=== PATIENT | male | born 1985 | race Caucasian/White ===

== ENCOUNTER 2022-01-03 00:11 | Emergency (ER) | payer SELFPAY ==
[2022-01-03] MEDS ORDERED: Ketorolac 60 MG/2 ML SDV IM ONE (00:28)
[2022-01-03] MEDS ORDERED: Clindamycin HCl 150 MG Cap PO ONE (00:57)
[2022-01-03] MEDS ORDERED: Acetaminophen/HYDROcodone 325-5 MG Tab PO ONE (01:07)
== END 2022-01-03 01:28 | disposition home or self-care (01) ==
LOC: SUPCPDRO 00:11 → KA.ED 00:11
DX: K04.7 Periapical abscess without sinus (principal); K02.9 Dental caries, unspecified; Z87.891 Personal history of nicotine dependence
CPT/HCPCS: 96372; 99282; 99283; A9270; J1885